=== PATIENT | male | born 1990 | race African-American/Black ===

== ENCOUNTER 2021-04-13 14:45 | Emergency (ER) | payer BC, OTHER ==
--- NOTE | 2021-04-13 15:37 | EDPHYS ---
Physician Documentation [facility] Name: Yaakov Moreno Age: 30 yrs Sex: Male : 1990 Arrival Date: 04/13/2021 Time: 14:50 Bed 10 Private MD: ED Physician Royce Garrett HPI: 04/13 15:35 This 30 yrs old Black Male presents to ER via Unassigned with complaints of r/o covid. kb 15:35 The patient or guardian reports flu symptoms, low-grade fever, myalgias. Onset: The kb symptoms/episode began/occurred 2 day(s) ago. Severity of symptoms: At their worst the symptoms were mild, in the emergency department the symptoms are unchanged. Modifying factors: The symptoms are alleviated by nothing, the symptoms are aggravated by nothing. Associated signs and symptoms: Pertinent positives: fever, Pertinent negatives: chest pain, diarrhea, ear ache, nausea, rhinorrhea, sore throat, vomiting. The patient has not experienced similar symptoms in the past. The patient has not recently seen a physician. Pt reports fever, chills and bodyaches for 2 days. States a lot of people at work have tested positive for covid so he came to get tested. Historical: - Allergies: 15:39 No Known Allergies; jl7 - Home Meds: 15:39 None [Active]; jl7 - PMHx: 15:39 None; jl7 - PSHx: 15:39 None; jl7 - Immunization history:: Client reports having NOT received the Covid vaccine. - Social history:: Smoking status: unknown. ROS: 15:34 Abdomen/GI: Negative for abdominal pain, nausea, vomiting, diarrhea, and constipation. kb 15:34 Constitutional: Positive for body aches, chills, fever, malaise. 15:34 All other systems are negative. Exam: 15:34 Constitutional: This is a well developed, well nourished patient who is awake, alert, kb and in no acute distress. Head/Face: Normocephalic, atraumatic. ENT: Moist Mucous membranes Cardiovascular: Regular rate and rhythm with a normal S1 and S2. No gallops, murmurs, or rubs. No pulse deficits. Respiratory: Respirations even and unlabored. No increased work of breathing. Talking in full sentences Skin: Warm, dry with normal turgor. Normal color. MS/ Extremity: Pulses equal, no cyanosis. Neurovascular intact. Full, normal range of motion. Neuro: Awake and alert, GCS 15, oriented to person, place, time, and situation. Moves all extremities. Normal gait. Psych: Awake, alert, with orientation to person, place and time. Behavior, mood, and affect are within normal limits. Vital Signs: 15:25 BP 159 / 92; Pulse 90; Resp 18; Temp 97.5; Pulse Ox 98% on R/A; Weight 154.22 kg; jl7 Height 5 ft. 11 in. (180.34 cm); 15:25 Body Mass Index 47.42 (154.22 kg, 180.34 cm) jl7 MDM: 15:27 Patient medically screened. kb 15:34 Data reviewed: vital signs, nurses notes. Data interpreted: Pulse oximetry: on room air kb is 98 %. Interpretation: normal. Counseling: I had a detailed discussion with the patient and/or guardian regarding: the historical points, exam findings, and any diagnostic results supporting the discharge/admit diagnosis, the need for outpatient follow up, a family practitioner, to return to the emergency department if symptoms worsen or persist or if there are any questions or concerns that arise at home. Administered Medications: No medications were administered Disposition: 18:02 Co-signature as Attending Physician, Royce Garrett MD I agree with the assessment and kdr plan of care. Disposition Summary: 04/13/21 15:36 Discharge Ordered Location: Home kb Condition: Stable kb Diagnosis - Coronavirus infection, unspecified kb Followup: kb - With: Emergency Department - When: As needed - Reason: Worsening of condition Followup: kb - With: Private Physician - When: 2 - 3 days - Reason: Recheck today's complaints, Continuance of care, Re-evaluation by your physician Discharge Instructions: - Discharge Summary Sheet kb - Viral Respiratory Infection, [id number] kb - COVID-19 kb Forms: - Medication Reconciliation Form kb - Thank You Letter kb - Antibiotic Education kb - Prescription Opioid Use kb Signatures: Dispatcher [employer] EDDelaney Jones, CHLOEC LUKASZ-Royce Bills MD MD kdr Leal, Jahala RN RN jl7
--- NOTE | 2021-04-13 15:53 | ER ---
Nurse's Notes [facility] Name: Yaakov Moreno Age: 30 yrs Sex: Male : 1990 Arrival Date: 04/13/2021 Time: 14:50 Bed 10 Private MD: Diagnosis: Coronavirus infection, unspecified Presentation: 04/13 15:25 Chief complaint: Patient states: Fever, chills, body aches x 2 days. Coronavirus jl7 screen: chills, fever, muscle pain, Client presents with at least one sign or symptom that may indicate coronavirus-19. Standard/surgical mask placed on the client. Ebola Screen: No symptoms or risks identified at this time. Initial Sepsis Screen: Does the patient meet any 2 criteria? No. Patient's initial sepsis screen is negative. Does the patient have a suspected source of infection? No. Patient's initial sepsis screen is negative. Risk Assessment: Do you want to hurt yourself or someone else? Patient reports no desire to harm self or others. 15:25 Method Of Arrival: Ambulatory [facility] 15:25 Acuity: JONA 4 7 15:25 Onset of symptoms was April 11, 2021. Care prior to arrival: None. jl7 Historical: - Allergies: 15:39 No Known Allergies; jl7 - Home Meds: 15:39 None [Active]; jl7 - PMHx: 15:39 None; jl7 - PSHx: 15:39 None; jl7 - Immunization history:: Client reports having NOT received the Covid vaccine. - Social history:: Smoking status: unknown. Vital Signs: 15:25 BP 159 / 92; Pulse 90; Resp 18; Temp 97.5; Pulse Ox 98% on R/A; Weight 154.22 kg; jl7 Height 5 ft. 11 in. (180.34 cm); 15:25 Body Mass Index 47.42 (154.22 kg, 180.34 cm) jl7 ED Course: 14:50 Patient arrived in ED. am2 15:03 Del[facility] Dorsey [facility]C [facility] kb 15:03 Royce Garrett MD is Attending Physician. kb 15:30 COVID swab sent to lab. jl7 15:39 Triage completed. jl7 15:39 Arm band placed on right wrist. jl7 15:52 Patient did not have IV access during this emergency room visit. jl7 Administered Medications: No medications were administered Outcome: 15:36 Discharge ordered by . home 15:52 Discharged to home ambulatory. jl7 15:52 Condition: stable 15:52 Discharge instructions given to patient, Instructed on discharge instructions, follow up and referral plans. Demonstrated understanding of instructions, follow-up care. 15:52 Patient left the ED. jl7 Signatures: Delaney Dorsey, LUKASZ-C GEOSCIENCE PROFESSOR-Chioma Roblero RN RN [id number] Rosi Peres
[2021-04-13 15:57] VITALS: BP 159/92; TEMP 97.5; O2SAT 98
== END 2021-04-13 15:52 | disposition home or self-care (01) ==
LOC: ER 14:45
DX: U07.1 COVID-19 (principal)
CPT/HCPCS: 99281; U0002